=== PATIENT | male | born 1945 | race Caucasian/White ===

== ENCOUNTER 2018-03-01 14:25 | Emergency (ER) | payer MEDICARE ==
[2018-03-01 14:47] VITALS: BP 142/90
--- NOTE | 2018-03-01 15:04 | UC ---
General HPI - HPI Summary HPI Summary: pt states he was outside at [facility] for a field hockey game since approx 1230. At around 1330, he was very hot, sweating profusely and started feeling nausea, dizziness and blurred vision. He left the field at approx 1415 and came to clinic, his son helped him to the car which he drove near the seats where patient was. He states he was out in the sun/heat for 3 hours yesterday as well . PMH of DM , last HBA1c =7% in the spring, last meal was breakfast at 6am. Weight gain of 7lbs in the past 4 months. - History of Current Complaint Chief Complaint: UCGeneralIllness Stated Complaint: SWEATING,LIGHTHEADED Time Seen by Provider: 03/01/18 14:54 Hx Obtained From: Patient Onset/Duration: Sudden Onset, Lasting Hours Onset Severity: Moderate Current Severity: Moderate Pain Intensity: 0 - Allergy/Home Medications Allergies/Adverse Reactions: Allergies Allergy/AdvReac Type Severity Reaction Status Date / Time No Known Allergies Allergy Verified 03/01/18 14:47 Home Medications: Home Medications Carvedilol TAB* [Coreg TAB*] 6.25 mg PO BID 03/01/18 [History Confirmed 03/01/18 ] Glimepiride 2 mg PO DAILY 03/01/18 [History Confirmed 03/01/18] Rivaroxaban TAB(*) [Xarelto 20 mg] 20 mg PO DAILY 03/01/18 [History Confirmed ] metFORMIN* [Glucophage 500 MG TAB *] 500 mg PO BID 03/01/18 [History Confirmed 03/01/18] PMH/Surg Hx/FS Hx/Imm Hx Endocrine History: Diabetes Cardiovascular History: Hypertension, Atrial Fibrillation - Surgical History Surgical History: None - Family History Known Family History: Positive: Diabetes - Social History Alcohol Use: None Substance Use Type: None Smoking Status (MU): Heavy Every Day Tobacco Smoker Type: Smokeless Tobacco Amount Used/How Often: 1 can per day Length of Time of Smoking/Using Tobacco: since age 21 Have You Smoked in the Last Year: Yes Review of Systems Constitutional: Fatigue Gastrointestinal: Nausea Neurological: Other - dizzy All Other Systems Reviewed And Are Negative: Yes Physical Exam Triage Information Reviewed: Yes Appearance: No Pain Distress, Obese, Other: - diaphoretic Vital Signs: Initial Vital Signs Temp 97.3 F 03/01/18 14:41 Pulse 69 03/01/18 14:41 Resp 18 03/01/18 14:41 BP 142/90 03/01/18 14:41 Pulse Ox 96 03/01/18 14:41 Eyes: Positive: Conjunctiva Clear ENT: Positive: Hearing grossly normal, Pharynx normal, TMs normal, Uvula midline Neck: Positive: Supple, Nontender, No Lymphadenopathy Respiratory: Positive: Chest non-tender, Lungs clear, Normal breath sounds, No respiratory distress Cardiovascular: Positive: RRR, No Murmur, Pulses Normal, Brisk Capillary Refill Abdomen Description: Positive: Nontender, No Organomegaly, Soft Bowel Sounds: Positive: Present Musculoskeletal: Positive: Strength Intact, ROM Intact, No Edema Skin Exam: Normal Course/Dx - Course Course Of Treatment: Patient vomited a scant amount of billous fluid upon arriving to but tolerated PO fluids on trial. Patient was cooled with ice water, towels and symptoms subsided in AC environment. EKG was NSR, HR was 62x' . QY=627rg/dl. Patient to follow up with PCP within a week. - Differential Dx - Multi-Symptom Provider Diagnoses: Heat exhaustion. DM2. HTN. Paroxysmal Afib Discharge - Sign-Out/Discharge Documenting (check all that apply): Patient Departure All imaging exams completed and their final reports reviewed: No Studies - Discharge Plan Condition: Stable Disposition: HOME Patient Education Materials: Heat Exhaustion (ED), Electrolyte Supplement (By mouth) Referrals: No Primary Care Phys,NOPCP [Primary Care Provider] - [facility] [place] [facility] REFERRAL [Outside] - Billing Disposition and Condition Condition: STABLE Disposition: Home
== END 2018-03-01 16:50 | disposition home or self-care (01) ==
LOC: UCCORT 14:25
DX: X30.XXXA Exposure to excessive natural heat, initial encounter (principal); Y93.9 Activity, unspecified; Y92.9 Unspecified place or not applicable; I10 Essential (primary) hypertension; E11.9 Type 2 diabetes mellitus without complications; I48.0 Paroxysmal atrial fibrillation; Z79.01 Long term (current) use of anticoagulants; Z79.84 Long term (current) use of oral hypoglycemic drugs; F17.210 Nicotine dependence, cigarettes, uncomplicated
CPT/HCPCS: 93005; 99201; G0463